=== PATIENT | female | born 1970 | race Caucasian/White ===

== ENCOUNTER 2017-09-21 08:11 | Emergency (ER) | payer OTHER ==
[~2017-09-21] VITALS: Ht 170.2 cm; Wt 129.3 kg
[~2017-09-21 08:11] MED LIST: ASPI81CH; CLOP75; CYAN500; HYDCHL25; METO25; SIMV40
[2017-09-21] MEDS ORDERED: ALBU90OI INH (10:00)
[2017-09-21] MEDS ORDERED: Zithromax250 MG PO (10:00)
[2017-09-21] MEDS ORDERED: Prednisone20 MG PO (10:00)
== END 2017-09-21 10:12 | disposition home or self-care (01) ==
LOC: ER 08:11
DX: J18.9 Pneumonia, unspecified organism (principal); I10 Essential (primary) hypertension; E78.00 Pure hypercholesterolemia, unspecified; F17.200 Nicotine dependence, unspecified, uncomplicated; Z90.49 Acquired absence of other specified parts of digestive tract
CPT/HCPCS: 71046; 94640; 96361; 96374; 96375; 99284; J1885; J2405; J7030

== ENCOUNTER 2017-12-02 17:32 | Emergency (ER) | payer OTHER ==
[~2017-12-02] VITALS: Ht 170.2 cm; Wt 127.0 kg
[~2017-12-02 17:32] MED LIST changes: +ALBU90OI INH; +Prednisone20 MG PO; +Zithromax250 MG PO
[2017-12-02] MEDS ORDERED: NAPR550 PO (19:27)
[2017-12-02] MEDS ORDERED: Norco 5-325 Ta1 EACH PO (19:27)
== END 2017-12-02 19:43 | disposition home or self-care (01) ==
LOC: ER 17:32
DX: M54.5 Low back pain (principal); I10 Essential (primary) hypertension; E78.5 Hyperlipidemia, unspecified; I25.10 Atherosclerotic heart disease of native coronary artery without angina pectoris; I25.2 Old myocardial infarction; F17.210 Nicotine dependence, cigarettes, uncomplicated; Z79.899 Other long term (current) drug therapy; Z79.82 Long term (current) use of aspirin; Z79.01 Long term (current) use of anticoagulants
CPT/HCPCS: 81025; 99283